=== PATIENT | female | born 1980 | race African-American/Black ===

== ENCOUNTER → 2020-01-22 | Outpatient (CLI) | payer MEDICAID ==
[2020-01-22 11:12] LABS: ALBUMIN 4.1 g/dL (3.5-5.0); ALKALINE PHOSPHATASE 100 U/L (38-126); AMYLASE 66 U/L (30-110); ANION GAP 9 (5-19); ASPARTATE AMINO TRANSFERASE 17 U/L (14-36); BILIRUBIN,TOTAL 0.6 mg/dL (0.2-1.3); BLOOD UREA NITROGEN 9 mg/dL (7-20); CALCIUM 9.7 mg/dL (8.4-10.2); CARBON DIOXIDE 24 mmol/L (22-30); CHLORIDE 104 mmol/L (98-107); GLUCOSE 95 mg/dL (75-110); TOTAL PROTEIN 7.6 g/dL (6.3-8.2)
== END ==
LOC: OD 09:29
PROVIDERS: ATTEND Family Medicine
DX: R14.0 Abdominal distension (gaseous) (principal); N91.1 Secondary amenorrhea
CPT/HCPCS: 36415; 80053; 82150; 83690; 84703